=== PATIENT | female | born 1995 | race Caucasian/White ===

== ENCOUNTER 2021-12-27 00:21 | Observation (INO) | payer MEDICAID ==
[2021-12-27] MEDS ORDERED: Sodium Chloride 0.9% 10 ML Syringe FLUSH PRN (00:27)
[2021-12-27] MEDS ORDERED: Labetalol 20 MG/4 ML Syringe IVPUSH ONE ×5 (00:27→05:03)
[2021-12-27 01:29] LABS: ANION GAP 15.9 mEq/L (7-13); CHLORIDE,CL 108 mmol/L (98-107); ESTIMATED GFR 111 mL/min (>=60); SODIUM,NA 139 mmol/L (136-145)
[2021-12-27] MEDS ORDERED: Magnesium Sulfate/Water 4 GM in Premix Bag 1 BAG IV ONE (02:10)
[2021-12-27] MEDS ORDERED: Betamethasone Acetate/Betamethasone Sod Phosphate 30 MG/5 ML MDV IM ONE (02:21)
[2021-12-27] MEDS ORDERED: Magnesium Sulfate/Water 20 GM/500 ML BAG IV SCH (02:30)
[2021-12-28 11:47] LABS: C.TRACHOMATIS BY TMA Negative (Negative); N.GONORRHOEAE BY TMA Negative (Negative)
== END 2021-12-27 05:35 ==
LOC: DL.OBCHECK 00:21 → DL.OB 00:27 → UNDOADMOB 01:45 → DL.OB 01:45
PROVIDERS: ADMIT Family Medicine; ATTEND Family Medicine
DX: O14.14 Severe pre-eclampsia complicating childbirth (principal); O99.891 Other specified diseases and conditions complicating pregnancy; O99.333 Smoking (tobacco) complicating pregnancy, third trimester; R60.0 Localized edema; Z88.8 Allergy status to other drugs, medicaments and biological substances; Z3A.31 31 weeks gestation of pregnancy
CPT/HCPCS: 36415; 51702; 80053; 82570; 83615; 84112; 84156; 84550; 85025; 86850; 86900; 86901; 87081; 87210; 87491; 87591; 96365; 96366; 96372; 96375; 96376; G0378; J0702; J3475; J3490; U0002

== ENCOUNTER 2023-02-26 07:25 | Inpatient (IN) | payer MEDICAID ==
[2023-02-26] MEDS ORDERED: Lidocaine 1% 30 ML SDV INJECT ONE (08:44)
[2023-02-26] MEDS ORDERED: Ondansetron 4 MG/2 ML SDV IVPUSH PRN (08:44)
[2023-02-26] MEDS ORDERED: Acetaminophen 325 MG Tab PO PRN ×2 (08:44→18:54)
[2023-02-26] MEDS ORDERED: Lactated Ringers 1,000 ML IV ONE (08:44)
[2023-02-26] MEDS ORDERED: Carboprost Tromethamine 250 MCG/1 ML Amp IM PRN (08:44)
[2023-02-26] MEDS ORDERED: Methylergonovine 0.2 MG/1 ML Amp IM PRN (08:44)
[2023-02-26] MEDS ORDERED: Misoprostol 400 MCG (4 X 100 MCG TAB) RECTAL PRN (08:44)
[2023-02-26] MEDS ORDERED: fentaNYL 100 MCG/2 ML SDV IVPUSH PRN (08:44)
[2023-02-26] MEDS ORDERED: Sodium Chloride 0.9% 10 ML Syringe FLUSH PRN (08:44)
[2023-02-26] MEDS ORDERED: Tranexamic Acid 1,000 MG in Sodium Chloride 0.9% 100 ML IV PRN (08:44)
[2023-02-26] MEDS ORDERED: Lactated Ringers 1,000 ML IV SCH (08:45)
[2023-02-26 08:54] LABS: HEMATOCRIT 36.3 % (37.0-47.0); HEMOGLOBIN 12.3 g/dL (12.0-16.0); MEAN CORPUSCULAR HGB CONC 33.9 g/dL (33.0-35.0); MEAN CORPUSCULAR VOLUME 85.6 fL (80-100); RED BLOOD CELL COUNT 4.24 10^6/uL (4.2-5.4); WHITE BLOOD CELL COUNT,WBC 7.9 10^3/uL (5.0-10.0)
[2023-02-26] MEDS ORDERED: Oxytocin/Normal Saline 30 UNIT/500 ML BAG IV SCH (09:00)
[2023-02-26] MEDS ORDERED: Bupivacaine 0.25% 10 ML SDV ONE (16:30)
[2023-02-26] MEDS ORDERED: fentaNYL 100 MCG/2 ML SDV ONE (16:30)
[2023-02-26] MEDS ORDERED: ePHEDrine 50 MG/ML SDV IVPUSH PRN (16:57)
[2023-02-26] MEDS ORDERED: Phenylephrine HCl In 0.9% NaCl 1 MG/10 ML Syringe IVPUSH PRN (16:57)
[2023-02-26] MEDS ORDERED: Ropivacaine 200 MG in Premix Bag 1 BAG EPIDUR SCH (17:00)
[2023-02-26] MEDS ORDERED: Simethicone 80 MG Tab.Chew PO PRN (18:54)
[2023-02-26] MEDS ORDERED: Benzocaine/Menthol 20%-0.5% Spray 78 GM Cannister TOP PRN (18:54)
[2023-02-26] MEDS ORDERED: Oxytocin 10 Units/1 ML SDV IM PRN (18:54)
[2023-02-26] MEDS: Docusate Sodium 100 MG Cap PO PRN (20:36)
[2023-02-26] MEDS: Ibuprofen 800 MG Tab PO PRN (20:36)
[2023-02-27] MEDS: Ibuprofen 800 MG Tab PO PRN ×2 (06:19→16:57)
[2023-02-27 06:44] LABS: HEMATOCRIT 34.1 % (37.0-47.0); HEMOGLOBIN 11.3 g/dL (12.0-16.0); MEAN CORPUSCULAR HEMOGLOBIN 28.5 pg (27.0-34.0); MEAN CORPUSCULAR HGB CONC 33.1 g/dL (33.0-35.0); MEAN CORPUSCULAR VOLUME 85.9 fL (80-100); RED BLOOD CELL COUNT 3.97 10^6/uL (4.2-5.4)
[2023-02-27] MEDS: Prenatal Multivitamin with Calcium/Folic Acid/Iron Tab PO SCH (08:44)
[2023-02-27] MEDS: Docusate Sodium 100 MG Cap PO PRN (08:44)
[2023-02-27] MEDS ORDERED: Witch Hazel Medicated Pads 100/Jar TOP PRN (16:45)
[2023-02-28] MEDS: Ibuprofen 800 MG Tab PO PRN ×3 (01:08→16:11)
[2023-02-28] MEDS: Docusate Sodium 100 MG Cap PO PRN ×2 (01:09→09:02)
[2023-02-28] MEDS: Prenatal Multivitamin with Calcium/Folic Acid/Iron Tab PO SCH (09:02)
== END 2023-02-28 16:45 | disposition home or self-care (01) | DRG 807 ==
LOC: DL.OB 08:01 → OBSVTOIN 18:24 → DL.OB 18:24
PROVIDERS: ADMIT Family Medicine; ATTEND Family Medicine
PROC: 10E0XZZ Delivery of Products of Conception, External Approach (ICD-10-PCS; principal; 2023-02-26)
PROC: 3E0R3BZ Introduction of Anesthetic Agent into Spinal Canal, Percutaneous Approach (ICD-10-PCS; 2023-02-26)
PROC: 00HU33Z Insertion of Infusion Device into Spinal Canal, Percutaneous Approach (ICD-10-PCS; 2023-02-26)
DX: O99.02 Anemia complicating childbirth (principal); O66.0 Obstructed labor due to shoulder dystocia; O99.334 Smoking (tobacco) complicating childbirth; F17.200 Nicotine dependence, unspecified, uncomplicated; Z37.0 Single live birth; Z3A.39 39 weeks gestation of pregnancy; Z79.82 Long term (current) use of aspirin; Z88.8 Allergy status to other drugs, medicaments and biological substances
CPT/HCPCS: 01967; 36415; 51702; 59409; 85027; A9270-GY; J2405; J2590; J2795; J3010; J7120

== ENCOUNTER 2023-08-16 23:24 | Emergency (ER) | payer MEDICAID ==
[2023-08-17 00:50] LABS: CORONAVIRUS COVID-19 NAA NEGATIVE (NEGATIVE); INFLUENZA A NAA NEGATIVE (NEGATIVE); INFLUENZA B NAA NEGATIVE (NEGATIVE); RESPIRATORY SYNCYTIAL VIR NAA NEGATIVE (NEGATIVE)
== END 2023-08-17 01:29 | disposition home or self-care (01) ==
LOC: DL.ED 23:24
DX: J06.9 Acute upper respiratory infection, unspecified (principal); F17.290 Nicotine dependence, other tobacco product, uncomplicated; Z79.899 Other long term (current) drug therapy; Z88.1 Allergy status to other antibiotic agents
CPT/HCPCS: 0241U; 81025; 99282; 99284